=== PATIENT | male | born 1980 | race Caucasian/White ===

== ENCOUNTER 2022-05-08 23:37 | Emergency (ER) | payer SELFPAY ==
[~2022-05-08] VITALS: Ht 170.2 cm; Wt 75.3 kg
[2022-05-08 23:45] VITALS: BP 118/81
--- NOTE | 2022-05-08 23:50 | NUR ---
PT AMBULATED TO BED 12
--- NOTE | 2022-05-08 23:52 | NUR ---
41 Y/O MALE BIBS FROM HOME, C/O RIGHT SHOULDER PAIN SINCE YESTERDAY, STATES HE WOKE UP WITH THE PAIN, BELIEVES MAY HAVE BEEN CAUSED FROM TAKING A TIRE OFF AT WORK THE PREVIOUS DAY. REPORTS TAKING OTC PAIN MEDS WITH NO RELIEF. CMS INTACT. NO OBVIOUS SIGNS OF TRAUMA OR DEFORMITY. DENIES N/V/D, COUGH, FEVER, CP, OR SOB. SKIN IS PINK/WARM/DRY. A/OX4, UNLABORED BREATHING, AMBULATORY. PMH: DENIES ALLERGIES: PENICILLINS
--- NOTE | 2022-05-08 23:59 | NUR ---
XRAY AT BEDSIDE
--- NOTE | 2022-05-09 01:00 | NUR ---
ER TALKING WITH PT
[2022-05-09] MEDS ORDERED: KETOROLAC 30 MG/ML VIAL IM ONE (01:20)
[2022-05-09] MEDS ORDERED: diazePAM 5 MG TAB PO ONE (01:20)
[2022-05-09] MEDS ORDERED: HYDROcodone/APAP 5/325 MG 1 TAB TAB PO ONE (03:50)
[2022-05-09] MEDS ORDERED: ACET-8386 PO (04:03)
[2022-05-09] MEDS ORDERED: NAPR-54 PO (04:03)
[2022-05-09 05:02] VITALS: BP 122/72
--- NOTE | 2022-05-09 05:03 | NUR ---
Patient discharged with v/s stable. Written and verbal after care instructions given and explained. Patient alert, oriented and verbalized understanding of instructions. Ambulatory with steady gait. All questions addressed prior to discharge. ID band removed. Patient advised to follow up with PMD. Rx of NAPROSYN AND NORCO given. Patient educated on indication of medication including possible reaction and side effects. Opportunity to ask questions provided and answered. VSS, A/OX4, AMBULATORY, UNLABORED BREATHING, AND CALM DEMEANOR.
== END 2022-05-09 04:59 | disposition home or self-care (01) ==
LOC: MED 23:37
DX: S46.911A Strain of unspecified muscle, fascia and tendon at shoulder and upper arm level, right arm, initial encounter (principal); Z88.0 Allergy status to penicillin; W18.30XA Fall on same level, unspecified, initial encounter; Y93.89 Activity, other specified; Y92.89 Other specified places as the place of occurrence of the external cause; Y99.8 Other external cause status
CPT/HCPCS: 73030; 96372; 99283; J1885; Q0092

== ENCOUNTER 2022-08-26 17:24 | Emergency (ER) | payer SELFPAY ==
[~2022-08-26] VITALS: Ht 170.2 cm; Wt 79.4 kg
[~2022-08-26 17:24] MED LIST: ACET-8386 PO; NAPR-54 PO
[2022-08-26 18:12] VITALS: BP 111/74
[2022-08-26] MEDS ORDERED: IBUPROFEN 600 MG TAB PO ONE (19:50)
[2022-08-26] MEDS ORDERED: CEPH-588 PO (19:55)
[2022-08-26] MEDS ORDERED: IBUP-2213 PO (19:55)
[2022-08-26] MEDS ORDERED: SULF-59 PO (19:55)
--- NOTE | 2022-08-26 22:58 | NUR ---
CALLED, NO ANSWER. DISCHARGED WITHOUT INSTRUCTION
== END 2022-08-26 22:58 | disposition home or self-care (01) ==
LOC: MED 17:24
DX: L03.012 Cellulitis of left finger (principal); Z88.0 Allergy status to penicillin
CPT/HCPCS: 99283